=== PATIENT | female | born 1965 | race Hispanic/Latino ===

== ENCOUNTER 2022-05-01 22:01 | Emergency (ER) | payer SELFPAY ==
[2022-05-01] MEDS ORDERED: Morphine 4 MG/ML VIAL ONE (23:38)
== END 2022-05-01 23:57 | disposition home or self-care (01) ==
LOC: ERS 22:01
DX: G62.9 Polyneuropathy, unspecified (principal); I10 Essential (primary) hypertension
CPT/HCPCS: 36416; 96372; 99283; J2270

== ENCOUNTER 2025-03-04 05:32 | Emergency (ER) | payer SELFPAY ==
[2025-03-04] MEDS ORDERED: Lisinopril 20 MG TAB ONE (06:30)
[2025-03-04 06:49] LABS: #Basophils 0.04 10x3/uL (0.0-0.2); #Eosinophils 0.06 10x3/uL (0.0-0.7); #Monocytes 0.44 10x3/uL (0.11-0.59); #Neutrophils 3.24 10x3/uL (1.40-6.50); %Basophils 0.7 % (0.0-1.0); %Eosinophils 1.0 % (0.0-10.0); %Lymphocytes 38.4 % (21.0-51.0); %Monocytes 7.2 % (0.0-10.0); %Neutrophils 52.5 % (42.0-75.0); Hematocrit 37.1 % (36.0-47.0); Hemoglobin 11.8 g/dL (12.0-16.0); Mean Corpuscular Hemoglobin 26.6 pg (27.0-31.0); Mean Corpuscular Volume 83.6 fL (78.0-98.0); Platelet Count 211 10x3/uL (130-400); Red Blood Cell (RBC) Count 4.44 mill/uL (4.20-5.40); White Blood Cell (WBC) Count 6.15 10x3/uL (4.8-10.8)
[2025-03-04 07:06] LABS: ALT (SGPT) 17 U/L (Less than 34); AST (SGOT) 20 U/L (11-34); Albumin 4.2 g/dL (3.1-4.5); Alkaline Phosphatase 79 U/L (40-110); Anion Gap 13 mmol/L (10-20); BUN (Urea Nitrogen) 15 mg/dL (9.8-20.1); Bilirubin, Total 0.4 mg/dL (0.3-1.2); Calc. Creatinine Clearance 0 mL/min (70-130); Calcium 9.4 mg/dL (7.8-10.44); Carbon Dioxide 25 mmol/L (22-29); Chloride 104 mmol/L (98-107); Globulin 4.0 g/dL (2.4-3.5); Glucose 187 mg/dL (70-105); Potassium 4.1 mmol/L (3.5-5.1); Sodium 138 mmol/L (136-145)
[2025-03-04] MEDS ORDERED: Ketorolac Tromethamine 30 MG (1 mL) VIAL ONE (08:12)
[2025-03-04] MEDS ORDERED: Metoclopramide HCl 10 MG (2 mL) VIAL ONE (08:12)
[2025-03-04] MEDS ORDERED: diphenhydrAMINE 50 MG/ML VIAL ONE (08:12)
[2025-03-04 08:43] LABS: INR-International Normal Ratio 1.1; PTT 31.2 sec (22.9-36.1); Prothrombin Time 14.3 sec (12.0-14.7)
== END 2025-03-04 10:11 | disposition home or self-care (01) ==
LOC: ERS 05:32
DX: R51.9 Headache, unspecified (principal); R42 Dizziness and giddiness; R29.700 NIHSS score 0; E78.5 Hyperlipidemia, unspecified; I10 Essential (primary) hypertension; Z79.899 Other long term (current) drug therapy
CPT/HCPCS: 70496; 70498; 80053; 84484; 85025; 85610; 85730; 93005; 96365; 96375; J1200; J1885; J2765